=== PATIENT | male | born 1955 | race Caucasian/White ===

== ENCOUNTER 2019-03-15 08:02 | Observation (INO) ==
[2019-03-15] MEDS ORDERED: MORPHINE 4 MG/1 ML VIAL IV STA (08:21)
[2019-03-15] MEDS ORDERED: ENOXAPARIN 100 MG/ML SYRINGE SUBCUT STA (08:21)
[2019-03-15] MEDS ORDERED: ONDANSETRON 4 MG/2 ML VIAL IV STA (08:21)
[2019-03-15] MEDS ORDERED: NITROGLYCERIN 2% OINT 1 INCH/GM PACK TOP STA (08:21)
[2019-03-15] MEDS ORDERED: ASPIRIN 325 MG TABLET PO STA (08:21)
[2019-03-15 08:47] LABS: Basophils % 0.2 % (0.0-0.8); Hematocrit 39.8 VOL% (42.0-52.0); Hemoglobin 13.7 GM/DL (14.0-18.0); Immature Granulocytes % 0.5 %; Immature Granulocytes Absolute 0.07 #; Lymphocytes # 3.2 10*3/uL (1.4-4.0); Lymphocytes % 22.5 % (21.2-54.2); Mean Corpuscular HGB Conc 34.4 GM/DL (32-36); Mean Corpuscular Volume 89.8 FL (87-102); Mean Platelet Volume 9.7 FL (9.6-12.0); Monocytes % 3.8 % (1.7-12.7); Platelet Count 165 T/CUMM (130-400); Red Blood Count 4.43 MC/CUMM (3.8-5.5); Red Cell Distribution Width 12.5 % (9.3-17.3); White Blood Count 14.1 T/CUMM (4-12)
[2019-03-15 08:56] LABS: INR 0.9; PT Patient Result 10.3 SECS (9.6-12.2)
[2019-03-15 09:13] LABS: Bilirubin,Total 0.5 MG/DL (0.2-1.0); Calcium 8.8 MG/DL (8.5-10.1); Osmolality,Calculated 280.7 MOS/KG (273-304); Total Protein 6.9 G/DL (6.4-8.3)
[2019-03-15] MEDS ORDERED: ONDANSETRON 4 MG/2 ML VIAL IV PRN (12:10)
[2019-03-15] MEDS ORDERED: PANTOPRAZOLE 40 MG TABLET PO SCH (12:10)
[2019-03-15] MEDS ORDERED: ACETAMINOPHEN 325 MG TABLET PO PRN (12:10)
[2019-03-15] MEDS: SODIUM CHLORIDE 0.9% 1,000 ML IV SCH ×2 (13:22→21:34)
[2019-03-15] MEDS: DOCUSATE SODIUM 100 MG CAPSULE PO SCH ×2 (13:22→21:37)
[2019-03-15] MEDS: atenoloL 25 MG TABLET PO SCH (21:36)
[2019-03-15] MEDS: MAGNESIUM OXIDE 400 MG TABLET PO SCH (21:36)
[2019-03-15] MEDS: methylPREDNISolone 4 MG TABLET PO SCH (21:37)
[2019-03-15] MEDS: ATORVASTATIN 20 MG TABLET PO SCH (21:37)
[2019-03-16] MEDS: SODIUM CHLORIDE 0.9% 1,000 ML IV SCH ×2 (05:35→13:51)
[2019-03-16] MEDS ORDERED: MAGNESIUM SULF RIDER 2 GM in PREMIX 1 EACH IV PRN (09:15)
[2019-03-16] MEDS ORDERED: POTASSIUM CHLORIDE RIDER 10 MEQ in PREMIX 1 EACH IV PRN (09:15)
[2019-03-16] MEDS ORDERED: DIAZEPAM 5 MG TABLET PO ONE (09:15)
[2019-03-16] MEDS ORDERED: diphenhydrAMINE CAP 25 MG CAPSULE PO ONE (09:15)
[2019-03-16] MEDS ORDERED: ENOXAPARIN 80 MG/0.8 ML SYRINGE SUBCUT ONE (09:19)
[2019-03-16] MEDS: PANTOPRAZOLE 40 MG TABLET PO SCH (09:20)
[2019-03-16] MEDS: ASPIRIN EC 81 MG TABLET PO SCH (09:20)
[2019-03-16] MEDS: MAGNESIUM OXIDE 400 MG TABLET PO SCH ×2 (09:20→21:42)
[2019-03-16] MEDS: GABAPENTIN 100 MG CAPSULE PO SCH ×3 (09:21→21:41)
[2019-03-16] MEDS: methylPREDNISolone 4 MG TABLET PO SCH ×4 (09:21→21:43)
[2019-03-16] MEDS: MULTIVITAMIN (CENTRUM) TABLET PO SCH (09:21)
[2019-03-16] MEDS: atenoloL 25 MG TABLET PO SCH (09:21)
[2019-03-16] MEDS: amLODIPine 5 MG TABLET PO SCH (09:22)
[2019-03-16] MEDS: DOCUSATE SODIUM 100 MG CAPSULE PO SCH ×2 (09:22→21:40)
[2019-03-16] MEDS: ALFUZOSIN 10 MG TABLET PO SCH (09:22)
[2019-03-16] MEDS: ISOSORBIDE MONONITRATE 20 MG TABLET PO SCH ×2 (09:23→16:23)
[2019-03-16 09:43] LABS: Risk Ratio 3.5; VLDL CHOLESTEROL 20.2 MG/DL
[2019-03-16] MEDS: ACETAMINOPHEN 325 MG TABLET PO SCH ×2 (11:38→21:42)
[2019-03-16] MEDS ORDERED: LIDOCAINE 1% 20 ML VIAL ONE (14:18)
[2019-03-16] MEDS ORDERED: MIDAZOLAM 2 MG/2 ML VIAL ONE (14:18)
[2019-03-16] MEDS ORDERED: fentaNYL 100 MCG/2 ML VIAL ONE (14:18)
[2019-03-16] MEDS: ATORVASTATIN 20 MG TABLET PO SCH (21:40)
[2019-03-17 03:34] LABS: Basophils % 0.6 % (0.0-0.8); Eosinophils # 0.1 10*3/uL (0.0-0.87); Eosinophils % 1.4 % (0.00-10.9); Immature Granulocytes % 0.4 %; Immature Granulocytes Absolute 0.02 #; Lymphocytes # 1.5 10*3/uL (1.4-4.0); Lymphocytes % 30.3 % (21.2-54.2); Mean Corpuscular HGB Conc 34.3 GM/DL (32-36); Mean Corpuscular Volume 91.6 FL (87-102); Neutrophils % 61.3 % (38.7-73.9); Platelet Count 68 T/CUMM (130-400); Red Blood Count 3.82 MC/CUMM (3.8-5.5); Red Cell Distribution Width 13.2 % (9.3-17.3)
[2019-03-17 03:55] LABS: Calcium 7.9 MG/DL (8.5-10.1); Osmolality,Calculated 283.4 MOS/KG (273-304)
[2019-03-17 08:19] VITALS: BP 140/82
[2019-03-17] MEDS: DOCUSATE SODIUM 100 MG CAPSULE PO SCH (08:33)
[2019-03-17] MEDS: ISOSORBIDE MONONITRATE 20 MG TABLET PO SCH (08:33)
[2019-03-17] MEDS: MULTIVITAMIN (CENTRUM) TABLET PO SCH (08:33)
[2019-03-17] MEDS: MAGNESIUM OXIDE 400 MG TABLET PO SCH (08:33)
[2019-03-17] MEDS: ASPIRIN EC 81 MG TABLET PO SCH (08:33)
[2019-03-17] MEDS: PANTOPRAZOLE 40 MG TABLET PO SCH (08:33)
[2019-03-17] MEDS: ALFUZOSIN 10 MG TABLET PO SCH (08:33)
[2019-03-17] MEDS: methylPREDNISolone 4 MG TABLET PO SCH (08:33)
[2019-03-17] MEDS: amLODIPine 5 MG TABLET PO SCH (08:34)
[2019-03-17] MEDS: ACETAMINOPHEN 325 MG TABLET PO SCH (08:34)
[2019-03-17] MEDS: GABAPENTIN 100 MG CAPSULE PO SCH (08:34)
[2019-03-17] MEDS ORDERED: METOPROLOL TARTRATE 25 MG TABLET PO SCH (09:00)
== END 2019-03-17 09:37 | disposition home or self-care (01) ==
LOC: N.ED 08:02 → N.EDINP 08:02 → N.2W 11:29
PROVIDERS: ADMIT Family Medicine; ATTEND Family Medicine
PROC: CLCCHCL (ICD-10-PCS; 2019-03-16 14:15)